=== PATIENT | male | born 1970 | race Caucasian/White ===

== ENCOUNTER 2019-07-01 00:50 | Emergency (ER) | payer SELFPAY ==
[~2019-07-01] VITALS: Ht 180.3 cm; Wt 112.9 kg
--- NOTE | 2019-07-01 02:25 | NUR ---
patient came from home and stated chief complaint of lower foot pain.
[2019-07-01 03:03] LABS: BASOPHILS % (AUTO) 0.6 % (0.0-2.0); CARBON DIOXIDE 25 mmol/L (21-32); CHLORIDE 105 mmol/L (98-107); CREATININE 1.4 mg/dL (0.6-1.3); EOSINOPHILS # (AUTO) 0.1 K/uL (0.0-0.7); EOSINOPHILS % (AUTO) 1.5 % (0.0-7.0); GLUCOSE 176 mg/dL (74-106); HEMATOCRIT 37.4 % (36.7-47.1); HEMOGLOBIN 13.2 g/dL (12.5-16.3); LYMPHOCYTES # (AUTO) 2.3 K/uL (20.0-40.0); LYMPHOCYTES % (AUTO) 30.2 % (20.5-51.5); MEAN CORPUSCULAR HEMOGLOBIN 31.9 uug (23.8-33.4); MEAN CORPUSCULAR HGB CONC 35 g/dL (32.5-36.3); MEAN CORPUSCULAR VOLUME 90.7 fL (73.0-96.2); MONOCYTES # (AUTO) 0.5 K/uL (2.0-10.0); NEUTROPHILS # (AUTO) 4.7 K/uL (1.8-8.9); NEUTROPHILS % (AUTO) 61.7 % (38.5-71.5); PLATELET COUNT (AUTO) 207 K/uL (152-348); RED BLOOD CELL COUNT(AUTO) 4.13 MIL/uL (4.06-5.63); UREA NITROGEN, BLOOD 26 mg/dL (7-18); WHITE BLOOD COUNT (AUTO) 7.7 K/uL (3.6-10.2)
[2019-07-01 03:09] LABS: ALANINE AMINOTRANSFERASE 16 U/L (16-63); ALKALINE PHOSPHATASE 97 U/L (50-136); ASPARTATE AMINOTRANSFERASE 17 U/L (15-37); BILIRUBIN,DIRECT 0.1 mg/dL (0.0-0.2); BILIRUBIN,TOTAL 0.3 mg/dL (0.2-1.0); TOTAL PROTEIN, SERUM 7.2 g/dL (6.4-8.2)
[2019-07-01 03:13] LABS: ACETAMINOPHEN < 2.0 ug/mL (10-30)
[2019-07-01 03:14] LABS: ETHANOL < 3 MG/DL (0-0)
[2019-07-01 03:38] LABS: *BILIRUBIN,URIN NEGATIVE (NEGATIVE); *BLOOD, URINE 2+ (NEGATIVE); *CLARITY,URINE CLEAR (CLEAR); *COLOR,URINE YELLOW (YELLOW); *KETONES,URINE NEGATIVE (NEGATIVE); *UROBILINOGEN,URINE 0.2 E.U./dl (NORMAL); LEUKOCYTE ESTERASE ,URINE NEGATIVE (NEGATIVE); NITRITE, URINE NEGATIVE (NEGATIVE); PH,URINE 5.5 (5.0-8.0); UGLUCOSE NEGATIVE (NEGATIVE)
[2019-07-01] MEDS ORDERED: ACETAMINOPHEN ES 500 MG TABLET ONE (03:46)
[2019-07-01] MEDS: ACETAMINOPHEN ES 500 MG TABLET PO ONE (03:47)
[2019-07-01 03:49] LABS: *AMPHETAMINE, URINE NEGATIVE (NEGATIVE); *BARBITURATE, URINE NEGATIVE (NEGATIVE); *CANNABINOID, URINE NEGATIVE (NEGATIVE); *COCCAINE, URINE NEGATIVE (NEGATIVE); *OPIATE, URINE NEGATIVE (NEGATIVE); *PHENCYCLIDINE SCREEN,URINE NEGATIVE (NEGATIVE); BACTERIA,URINE NONE SEEN /HPF (NONE SEEN); SQUAMOUS EPITHELIAL CELL,UR FEW /HPF (NONE SEEN); WBC,URINE 0-3 /HPF (0-3)
--- NOTE | 2019-07-01 04:08 | NUR ---
Patient discharged to home in stable conditon. Written and verbal after care instructions given. Patient verbalizes understanding of instructions. Patient alert and oriente x3. patient self ambulatory with steady gait. [facility] care [facility] patient denies any pain/discomfort
[2019-07-01 04:16] VITALS: BP 135/76
== END 2019-07-01 04:05 | disposition home or self-care (01) ==
LOC: EDBD → ER 01:01
DX: M79.671 Pain in right foot (principal); M79.672 Pain in left foot; N28.9 Disorder of kidney and ureter, unspecified; F17.200 Nicotine dependence, unspecified, uncomplicated; Z59.0 Homelessness
CPT/HCPCS: 36415; 80048; 80076; 80307; 81000; 81001; 82550; 85025; 99283; G0480 ×2; G0481; A4663; A9150

== ENCOUNTER 2019-07-30 06:08 | Emergency (ER) | payer SELFPAY ==
[~2019-07-30] VITALS: Ht 180.3 cm; Wt 112.9 kg
[2019-07-30] MEDS ORDERED: ACETAMINOPHEN 325 MG TABLET ONE (06:19)
[2019-07-30] MEDS ORDERED: ACETAMINOPHEN 325 MG TABLET PO ONE (06:30)
--- NOTE | 2019-07-30 06:35 | NUR ---
Patient discharged to home in stable conditon. Written and verbal after care instructions given. Patient verbalizes understanding of instructions. walked out of ER with no distress noted.
== END 2019-07-30 06:36 | disposition home or self-care (01) ==
LOC: ER 06:12 → EDBD 06:12 → ER 06:36
DX: R20.2 Paresthesia of skin (principal); E11.9 Type 2 diabetes mellitus without complications; F20.9 Schizophrenia, unspecified; F17.200 Nicotine dependence, unspecified, uncomplicated
CPT/HCPCS: A4663

== ENCOUNTER 2019-09-13 02:22 | Inpatient (IN) | payer MEDICARE, OTHER ==
[~2019-09-13] VITALS: Ht 180.3 cm; Wt 112.9 kg
--- NOTE | 2019-09-13 02:48 | NUR ---
PATIENT WALKS INTO ER WITH C/O OF HEARING VOICES OF A MAN AND A WOMAN, SAYS HE IS AFARID TO THINK FOR HIMSELF BECAUSE OF THE VOICES IN HIS HEAD, HE DENIES ANY SI OR HI AAT THIS TIME.
--- NOTE | 2019-09-13 02:55 | NUR ---
DR. LOCKETT AT BEDSIDE FOR MSE.
--- NOTE | 2019-09-13 02:57 | NUR ---
PATIENT STATES NOW THAT HE HAS SI, THINKING OF WALKING IN FRONT OF A BUS.
[2019-09-13 03:10] LABS: BASOPHILS % (AUTO) 0.4 % (0.0-2.0); EOSINOPHILS % (AUTO) 0.2 % (0.0-7.0); HEMATOCRIT 36.1 % (36.7-47.1); HEMOGLOBIN 12.4 g/dL (12.5-16.3); LYMPHOCYTES # (AUTO) 1.1 K/uL (20.0-40.0); LYMPHOCYTES % (AUTO) 12.4 % (20.5-51.5); MEAN CORPUSCULAR HEMOGLOBIN 31.1 uug (23.8-33.4); MEAN CORPUSCULAR HGB CONC 35 g/dL (32.5-36.3); MEAN CORPUSCULAR VOLUME 90.1 fL (73.0-96.2); MONOCYTES # (AUTO) 0.4 K/uL (2.0-10.0); MONOCYTES % (AUTO) 4.7 % (0.0-11.0); NEUTROPHILS # (AUTO) 7.4 K/uL (1.8-8.9); NEUTROPHILS % (AUTO) 82.3 % (38.5-71.5); PLATELET COUNT (AUTO) 222 K/uL (152-348)
[2019-09-13 03:23] LABS: ALANINE AMINOTRANSFERASE 16 U/L (16-63); ALKALINE PHOSPHATASE 103 U/L (50-136); ASPARTATE AMINOTRANSFERASE 13 U/L (15-37); BILIRUBIN,DIRECT 0.1 mg/dL (0.0-0.2); BILIRUBIN,TOTAL 0.3 mg/dL (0.2-1.0); CARBON DIOXIDE 27 mmol/L (21-32); CHLORIDE 99 mmol/L (98-107); CREATINE KINASE, TOTAL 130 U/L (39-308); POTASSIUM 4.8 mmol/L (3.5-5.1); TOTAL PROTEIN, SERUM 7.1 g/dL (6.4-8.2); UREA NITROGEN, BLOOD 34 mg/dL (7-18)
[2019-09-13 03:26] LABS: *AMPHETAMINE, URINE NEGATIVE (NEGATIVE); *BARBITURATE, URINE NEGATIVE (NEGATIVE); *CANNABINOID, URINE POSITIVE (NEGATIVE); *COCCAINE, URINE NEGATIVE (NEGATIVE); *OPIATE, URINE NEGATIVE (NEGATIVE); *PHENCYCLIDINE SCREEN,URINE NEGATIVE (NEGATIVE)
[2019-09-13 03:26] LABS: GLUCOSE 429 mg/dL (74-106)
[2019-09-13 03:27] LABS: ACETAMINOPHEN < 2.0 ug/mL (10-30)
[2019-09-13 03:30] LABS: THYROID STIMULATING HORMONE 0.816 mIU/mL (0.358-3.740)
[2019-09-13] MEDS ORDERED: IV NS 1000 ML 1,000 ML IV ONE (03:30)
--- NOTE | 2019-09-13 03:37 | NUR ---
SPOKE WITH CRISIS DATABASE ADMINISTRATOR SATISH, WILL BE HERE SHORTLY.
[2019-09-13 03:44] LABS: ETHANOL < 3 MG/DL (0-0)
[2019-09-13 03:54] LABS: *CLARITY,URINE CLEAR (CLEAR); *COLOR,URINE YELLOW (YELLOW)
[2019-09-13 03:55] LABS: *BLOOD, URINE 1+ (NEGATIVE); PH,URINE 5.5 (5.0-8.0); UGLUCOSE 3+ (NEGATIVE)
[2019-09-13 03:56] LABS: *BILIRUBIN,URIN NEGATIVE (NEGATIVE); *KETONES,URINE NEGATIVE (NEGATIVE); *UROBILINOGEN,URINE 0.2 E.U./dl (NORMAL); LEUKOCYTE ESTERASE ,URINE NEGATIVE (NEGATIVE); NITRITE, URINE NEGATIVE (NEGATIVE)
[2019-09-13 03:57] LABS: BACTERIA,URINE NONE SEEN /HPF (NONE SEEN); RBC,URINE 0-3 /HPF (0-3); SQUAMOUS EPITHELIAL CELL,UR NONE SEEN /HPF (NONE SEEN)
--- NOTE | 2019-09-13 04:07 | NUR ---
ABG NOT NEEDED PER DR LOCKETT.
[2019-09-13] MEDS ORDERED: INSULIN REGULAR, HUMAN 300 UNIT/3 ML VIAL IV ONE (04:30)
--- NOTE | 2019-09-13 04:30 | NUR ---
Navya RASCON PET arrived to ER for pt psych eval.
[2019-09-13] MEDS ORDERED: INSULIN GLARGINE,HUM 300 UNITS/3 ML CARTRIDGE SQ ONE (04:55)
[2019-09-13 05:26] LABS: CREATININE 1.8 mg/dL (0.6-1.3); POTASSIUM 4.9 mmol/L (3.5-5.1)
--- NOTE | 2019-09-13 05:50 | NUR ---
CESAR PAGED, BENSON ORELLANA ASSOCIATE ENTERTAINMENT EDITOR. AWAITING CALL BACK.
--- NOTE | 2019-09-13 06:07 | NUR ---
SPOKE WITH PATIENT. STATES THAT HE IS SUPPOSED TO TAKE HOME MEDICATIONS BUT HAS NOT IN A LONG TIME. ATORVASTATIN GLIPIZIDE LISINOPRIL METFORMIN PATIENT DOES NOT KNOW THE DOSE AND DOES NOT REMEMBER LAST TIME TAKING THESE MEDICATION. PATIENT ALSO STATES THAT HE WAS TAKING PSYCH MEDICATIONS BUT HAS NOT TAKEN ANY PSYCH MEDICATIONS FOR THE LAST 2 YEARS.
--- NOTE | 2019-09-13 06:25 | NUR ---
BENSON ORELLANA CALLED BACK AND SPEKING WITH DR. LOCKETT. PATIENT WILL BE ADMITTED TO M/S, TRANSFERRED TO THE FLOOR AFTER 0700.
[2019-09-13] MEDS ORDERED: ONDANSETRON 4 MG/2 ML VIAL IV PRN (06:30)
[2019-09-13] MEDS ORDERED: MAGNESIUM HYDROXIDE 30 ML LIQUID UDC PO PRN (06:30)
[2019-09-13] MEDS ORDERED: ACETAMINOPHEN 325 MG TABLET PO PRN (06:30)
[2019-09-13] MEDS ORDERED: DEXTROSE 50% 50 ML DISP.SYRIN IV PRN (06:30)
[2019-09-13] MEDS ORDERED: Z GUARD REMEDY PASTE 57 GM TUBE TOP PRN (06:30)
[2019-09-13] MEDS ORDERED: HYDROCODONE/APAP 5-325MG TABLET PO PRN (06:30)
--- NOTE | 2019-09-13 06:53 | NUR ---
HANDOFF TO PALOMO GONZALEZ RN.
--- NOTE | 2019-09-13 08:00 | NUR ---
transfered to 3rd floor Med Surg via [facility].
--- NOTE | 2019-09-13 08:10 | NUR ---
Received this 49 yo male, admission from ER, per toro with the diagnosis of uncontrolled of diabetes mellitus with hyperglycemia. On 5150 for danger to self and gravely disable. Transfer to bed comfortably. Patient is alert, oriented x 4, able to move all extremities on purpose, cooperative and responded appropriately. IVF started as ordered. Blood glucose checked with Insulin sliding given per scale. 1:1 sitter at bedside
[2019-09-13] MEDS: BLOOD SUGAR DIAGNOSTIC 1 EACH STRIP VI SCH ×4 (09:09→21:36)
[2019-09-13] MEDS: IV NS 1000 ML 1,000 ML IV PRN ×2 (09:15→21:37)
[2019-09-13] MEDS: INSULIN REGULAR, HUMAN 300 UNIT/3 ML VIAL SQ PRN ×3 (09:16→17:38)
--- NOTE | 2019-09-13 11:00 | NUR ---
Patient had shower, accompanied/monitored by sitter
[2019-09-13 11:31] VITALS: BP 156/67
[2019-09-13] MEDS ORDERED: ZOLPIDEM 5 MG TABLET PO PRN (14:00)
--- NOTE | 2019-09-13 14:00 | NUR ---
Patient asking to go out to smoke. Explained to him about policy and offered nicotine patch but refused. Patient went to sleep. Seen by Dr. Simon for Psych consult.
[2019-09-13] MEDS ORDERED: LORAZEPAM 1 MG TABLET PO PRN (14:15)
[2019-09-13] MEDS: risperiDONE 2 MG TABLET PO SCH (17:36)
[2019-09-13 17:54] VITALS: BP 156/67
--- NOTE | 2019-09-13 18:57 | NUR ---
With fair appetite. compliant with taking of medication. Belongings removed from the room and placed on contraband locker. Phone and call light cord removed. 1:1 sitter at bedside
[2019-09-13 19:12] VITALS: BP 135/51
--- NOTE | 2019-09-13 19:30 | NUR ---
Received patient in bed awake, A&Ox2. No SOB noted, not in distress. No SI noted. IV on RFA intact and patent w/ IVF infusing. w/ 1:1 sitter at bedside for safety. Safety measures observed. Will continue to monitor patient
[2019-09-13] MEDS: INSULIN REGULAR, HUMAN 300 UNITS/3 ML VIAL SQ PRN (21:40)
--- NOTE | 2019-09-14 00:33 | NUR ---
pt in bed , resting quietly, needs attended to, continues to be on 1:1 sitter , 51/50 hold till 09/16/19 at 0500.nothing unusual noted. no complaints of pain .
--- NOTE | 2019-09-14 04:50 | NUR ---
HAD A QUIET NOC, SLEPT INTERMITTENTLY,KEPT WARM AND COMFORTABLE.
[2019-09-14 04:58] VITALS: BP 146/64
[2019-09-14 06:36] LABS: BASOPHILS # (AUTO) 0.1 K/uL (0.0-8.0); BASOPHILS % (AUTO) 0.8 % (0.0-2.0); EOSINOPHILS # (AUTO) 0.1 K/uL (0.0-0.7); EOSINOPHILS % (AUTO) 2.2 % (0.0-7.0); HEMATOCRIT 35.6 % (36.7-47.1); LYMPHOCYTES # (AUTO) 2.5 K/uL (20.0-40.0); LYMPHOCYTES % (AUTO) 36.9 % (20.5-51.5); MEAN CORPUSCULAR HEMOGLOBIN 31.2 uug (23.8-33.4); MEAN CORPUSCULAR HGB CONC 34 g/dL (32.5-36.3); MEAN CORPUSCULAR VOLUME 92.5 fL (73.0-96.2); MONOCYTES # (AUTO) 0.5 K/uL (2.0-10.0); MONOCYTES % (AUTO) 7.3 % (0.0-11.0); NEUTROPHILS # (AUTO) 3.5 K/uL (1.8-8.9); NEUTROPHILS % (AUTO) 52.8 % (38.5-71.5); PLATELET COUNT (AUTO) 171 K/uL (152-348); RED BLOOD CELL COUNT(AUTO) 3.84 MIL/uL (4.06-5.63); WHITE BLOOD COUNT (AUTO) 6.7 K/uL (3.6-10.2)
[2019-09-14] MEDS: BLOOD SUGAR DIAGNOSTIC 1 EACH STRIP VI SCH ×4 (06:41→20:14)
[2019-09-14 06:54] LABS: CREATININE 1.5 mg/dL (0.6-1.3); MAGNESIUM 1.8 mg/dL (1.8-2.4); PHOSPHOROUS 3.1 mg/dL (2.5-4.9); POTASSIUM 4.8 mmol/L (3.5-5.1)
[2019-09-14 07:13] VITALS: BP 162/53
--- NOTE | 2019-09-14 07:30 | NUR ---
on bed, resting well. denies any discomfort. appetite good, tolerated well. calm
[2019-09-14] MEDS: IV NS 1000 ML 1,000 ML IV PRN ×2 (08:11→18:11)
[2019-09-14] MEDS: INSULIN REGULAR, HUMAN 300 UNIT/3 ML VIAL SQ PRN ×2 (08:16→12:21)
[2019-09-14] MEDS: risperiDONE 2 MG TABLET PO SCH ×2 (08:34→16:51)
[2019-09-14 11:48] VITALS: BP 152/84
--- NOTE | 2019-09-14 12:00 | NUR ---
resting well, sleeping on and off
[2019-09-14] MEDS: glipiZIDE 5 MG TABLET PO SCH (14:14)
[2019-09-14 15:41] VITALS: BP_SYST 168; BP_SYST 184; BP_DIAS 61; BP_DIAS 82
--- NOTE | 2019-09-14 18:44 | NUR ---
took meds without incident. appetite good. anxious x 2 for request of smoking privelege, denied per policy. taking fluids well, appetite good. no agitation noted.
[2019-09-14 19:52] VITALS: BP 171/78
--- NOTE | 2019-09-14 20:00 | NUR ---
Received patient in bed asleep, aroused easily. No SOB noted, not in distress. No SI noted. IV on RFA intact and patent w/ IVF infusing. w/ 1:1 sitter at bedside for safety. Safety measures observed. Will continue to monitor patient
--- NOTE | 2019-09-14 20:15 | NUR ---
Patient noted w/ elevated BP-171/78, n.o from David FRINGE MAKER for Clonidine 0.1mg Q6 PRN for SBP>160.
[2019-09-14] MEDS: CLONIDINE HCL 0.1 MG TABLET PO PRN (20:40)
[2019-09-14 21:00] VITALS: BP 144/60
--- NOTE | 2019-09-14 21:00 | NUR ---
BP rechecked, BP went down to 144/60
[2019-09-15] MEDS: IV NS 1000 ML 1,000 ML IV PRN ×2 (04:43→15:10)
[2019-09-15 05:05] VITALS: BP 159/46
[2019-09-15 06:35] LABS: CREATININE 1.5 mg/dL (0.6-1.3); POTASSIUM 5.2 mmol/L (3.5-5.1)
[2019-09-15] MEDS: BLOOD SUGAR DIAGNOSTIC 1 EACH STRIP VI SCH ×4 (06:42→20:51)
[2019-09-15] MEDS: glipiZIDE 5 MG TABLET PO SCH ×2 (06:46→17:12)
--- NOTE | 2019-09-15 06:57 | NUR ---
Patient slept well. No complaints of pain at this time. Compliant w/ meds. Cont on 1:1 sitter for safety. All needs attended. Will endorse accordingly
[2019-09-15 07:30] VITALS: BP 164/58
--- NOTE | 2019-09-15 07:30 | NUR ---
Patient calm and comfortable with no sings of distress; patient will continue to be monitored. Patient with 1:1 sitter.
[2019-09-15] MEDS: risperiDONE 2 MG TABLET PO SCH ×2 (09:10→17:12)
[2019-09-15] MEDS: INSULIN REGULAR, HUMAN 300 UNIT/3 ML VIAL SQ PRN ×3 (09:15→17:19)
[2019-09-15] MEDS: CLONIDINE HCL 0.1 MG TABLET PO PRN (11:08)
[2019-09-15 12:00] VITALS: BP 158/60
[2019-09-15] MEDS: VALSARTAN 80 MG TABLET PO SCH (12:40)
[2019-09-15] MEDS ORDERED: FUROSEMIDE 40 MG TABLET PO ONE (12:45)
[2019-09-15 19:00] VITALS: BP 160/59
--- NOTE | 2019-09-15 19:30 | NUR ---
Received patient resting in bed, no signs of acute distress noted. A/Ox2. 1:1 sitter for safety. No complaints of pain or SOB. IVF running on the left hand, no s/s of infection or infiltration. Vitals WNL. Safety measures initiated.
--- NOTE | 2019-09-15 19:30 | NUR ---
Patient with high blood pressure through out shift and high potassium; Md placed hydralazine and valsartan for blood pressure and high potassium . Patient blood pressure decreased throughout shift. patient medication compliant ; patient showered with sitter; patient with 1:1 sitter and compliant. Patient hyperglycemia under control during shift.
[2019-09-15 19:59] VITALS: BP 150/57
[2019-09-15] MEDS: INSULIN REGULAR, HUMAN 300 UNITS/3 ML VIAL SQ PRN (20:34)
--- NOTE | 2019-09-15 23:09 | NUR ---
Patient denied any SI/Hallucinations. Says he's just trying to get some more rest. No s/s if hyper/hypoglycemia. Will continue to monitor.
[2019-09-16] MEDS: IV NS 1000 ML 1,000 ML IV PRN (02:06)
[2019-09-16 04:35] VITALS: BP 170/65
[2019-09-16] MEDS: CLONIDINE HCL 0.1 MG TABLET PO PRN (04:52)
[2019-09-16 05:57] LABS: BASOPHILS # (AUTO) 0.1 K/uL (0.0-8.0); BASOPHILS % (AUTO) 0.7 % (0.0-2.0); EOSINOPHILS # (AUTO) 0.1 K/uL (0.0-0.7); EOSINOPHILS % (AUTO) 1.8 % (0.0-7.0); HEMOGLOBIN 12.4 g/dL (12.5-16.3); LYMPHOCYTES # (AUTO) 2.3 K/uL (20.0-40.0); LYMPHOCYTES % (AUTO) 30.4 % (20.5-51.5); MEAN CORPUSCULAR HEMOGLOBIN 31.7 uug (23.8-33.4); MEAN CORPUSCULAR HGB CONC 35 g/dL (32.5-36.3); MEAN CORPUSCULAR VOLUME 89.7 fL (73.0-96.2); MONOCYTES # (AUTO) 0.4 K/uL (2.0-10.0); MONOCYTES % (AUTO) 5.4 % (0.0-11.0); NEUTROPHILS # (AUTO) 4.6 K/uL (1.8-8.9); NEUTROPHILS % (AUTO) 61.7 % (38.5-71.5); PLATELET COUNT (AUTO) 200 K/uL (152-348); WHITE BLOOD COUNT (AUTO) 7.4 K/uL (3.6-10.2)
[2019-09-16 06:08] LABS: CREATININE 1.2 mg/dL (0.6-1.3); MAGNESIUM 1.5 mg/dL (1.8-2.4); PHOSPHOROUS 4.1 mg/dL (2.5-4.9); POTASSIUM 4.6 mmol/L (3.5-5.1)
[2019-09-16] MEDS: BLOOD SUGAR DIAGNOSTIC 1 EACH STRIP VI SCH ×3 (06:36→17:03)
[2019-09-16] MEDS: glipiZIDE 5 MG TABLET PO SCH ×2 (06:36→17:03)
--- NOTE | 2019-09-16 06:42 | NUR ---
Patient noted with BP 170/65 PRN Catapres given, rechecked BP and is 150/61. Patient no longer on hold. No s/s of hyper/hypoglycemia. Safety measures given. Will endorse to next shift.
--- NOTE | 2019-09-16 07:30 | NUR ---
Patient calm and comfortable with no signs of distress; patient resting in bed ; patient will continue to be monitored.
[2019-09-16] MEDS ORDERED: CLONIDINE HCL 0.2 MG TABLET PO PRN (08:15)
[2019-09-16] MEDS ORDERED: CLONIDINE HCL 0.1 MG TABLET PO PRN (08:15)
[2019-09-16] MEDS: MAGNESIUM SULFATE/D5W 100 ML IV SCH ×2 (08:21→10:38)
[2019-09-16] MEDS: risperiDONE 2 MG TABLET PO SCH ×2 (08:25→17:03)
[2019-09-16] MEDS: VALSARTAN 80 MG TABLET PO SCH (08:25)
[2019-09-16] MEDS: INSULIN REGULAR, HUMAN 300 UNIT/3 ML VIAL SQ PRN ×2 (08:27→12:07)
[2019-09-16] MEDS ORDERED: LISINOPRIL 5 MG TABLET PO SCH (11:15)
[2019-09-16 11:22] VITALS: BP 141/66
[2019-09-16] MEDS ORDERED: VALS80TA2 PO (14:06)
[2019-09-16] MEDS ORDERED: Blood Sugar Diagnostic VI (14:06)
[2019-09-16] MEDS ORDERED: GLIP5TAB13 PO (14:06)
[2019-09-16] MEDS ORDERED: LISI-607 PO (14:06)
[2019-09-16] MEDS ORDERED: INSU100V28 SQ ×2 (14:06)
[2019-09-16] MEDS ORDERED: CLON0.2T12 PO (14:06)
[2019-09-16] MEDS ORDERED: DEXT50DI8 IV (14:06)
[2019-09-16 15:30] VITALS: BP 153/64
--- NOTE | 2019-09-16 19:11 | NUR ---
Patient discharged to [facility] in [place]; Patient with stable vital signs ; Patient educated on discharge instructions; Report given to RN auger supervisor at health care facility; patient medication compliant through out shift; Belongings returned to to patient ; Patient picked up by ambulance.
== END 2019-09-16 19:15 | DRG 637 ==
LOC: ER 02:25 → MEDSURG3 08:00
PROVIDERS: ADMIT Nurse Practitioner Acute Care
DX: E11.65 Type 2 diabetes mellitus with hyperglycemia (principal); N17.0 Acute kidney failure with tubular necrosis; F20.0 Paranoid schizophrenia; R45.851 Suicidal ideations; E44.1 Mild protein-calorie malnutrition; E11.22 Type 2 diabetes mellitus with diabetic chronic kidney disease; N18.2 Chronic kidney disease, stage 2 (mild); Z59.0 Homelessness; Z91.14 Patient's other noncompliance with medication regimen; I12.9 Hypertensive chronic kidney disease with stage 1 through stage 4 chronic kidney disease, or unspecified chronic kidney disease; Z79.84 Long term (current) use of oral hypoglycemic drugs; H53.2 Diplopia; F17.210 Nicotine dependence, cigarettes, uncomplicated; E78.5 Hyperlipidemia, unspecified; E66.9 Obesity, unspecified; D64.9 Anemia, unspecified; F10.20 Alcohol dependence, uncomplicated; Y90.0 Blood alcohol level of less than 20 mg/100 ml; F12.10 Cannabis abuse, uncomplicated
CPT/HCPCS: 36415; 80307; 83735; 84100; 84443; 85025; 93005; A4663; G0378; G0480; G0480-TC; J1815; J3475; J7030